=== PATIENT | female | born 1990 | race Two or more races ===

== ENCOUNTER 2018-12-08 14:19 | Emergency (ER) | payer SELFPAY ==
[~2018-12-08] VITALS: Ht 152.4 cm; Wt 55.0 kg
[~2018-12-08 14:19] MED LIST: IBUP-675; VICOT
[2018-12-08 15:24] VITALS: BP 116/48
[2018-12-08] MEDS ORDERED: LIDOCAINE 1%/EPI 1:200,000/PF 10 ML VIAL INJ ONE (15:30)
[2018-12-08] MEDS ORDERED: PERTUSS(ACELL),DIPH,TET VAC/PF 0.5 ML VIAL IM ONE (15:30)
[2018-12-08] MEDS ORDERED: BACITRACIN 0.9 GM PACKET OINTMENT TP ONE (16:15)
== END 2018-12-08 16:54 | disposition home or self-care (01) ==
LOC: EMS 14:19
DX: S61.411A Laceration without foreign body of right hand, initial encounter (principal); F12.90 Cannabis use, unspecified, uncomplicated; F17.210 Nicotine dependence, cigarettes, uncomplicated; W26.0XXA Contact with knife, initial encounter; Y93.G1 Activity, food preparation and clean up; Y92.89 Other specified places as the place of occurrence of the external cause; Y99.8 Other external cause status
CPT/HCPCS: 12001; 73130; 90471; 90715; 99283; J3490